=== PATIENT | female | born 1945 | race Caucasian/White ===

== ENCOUNTER → 2017-09-16 | Outpatient (CLI) | payer OTHER | LOC: CIMAGING 10:05 | PROVIDERS: ATTEND Internal Medicine | DX: K80.20 Calculus of gallbladder without cholecystitis without obstruction (principal); N28.1 Cyst of kidney, acquired; D73.9 Disease of spleen, unspecified | CPT/HCPCS: 76700-PO ==

== ENCOUNTER → 2017-09-28 | Outpatient (CLI) | payer OTHER | LOC: FIMAGING 07:57 | PROVIDERS: ATTEND Surgery | DX: K21.9 Gastro-esophageal reflux disease without esophagitis (principal); K44.9 Diaphragmatic hernia without obstruction or gangrene ==